=== PATIENT | male | born 1965 ===

== ENCOUNTER 2018-02-03 07:25 | Outpatient (CLI) | payer OTHER ==
[~2018-02-03 07:25] MED LIST: ASPIR 8181 MG; DIOVAN40 MG; JARDIANCE10 MG; TRULICITY0.75 MG/0.
== END 2018-02-03 07:31 | disposition home or self-care (01) ==
LOC: SONOGRAMA 07:25 → MAMO-SONO 08:45
DX: R10.84 Generalized abdominal pain (principal)

== ENCOUNTER 2018-03-30 09:26 | Emergency (ER) | payer OTHER ==
[~2018-03-30] VITALS: Ht 180.3 cm; Wt 96.6 kg
[2018-03-30] MEDS ORDERED: LEXAPRO20 MG (09:45)
[2018-03-30] MEDS ORDERED: AMOX1TAB5 PO (10:06)
[2018-03-30] MEDS ORDERED: IBUPROFEN800 MG PO (10:06)
[2018-03-30] MEDS ORDERED: MUPIROCIN22 GM TOP (10:07)
== END 2018-03-30 10:41 | disposition home or self-care (01) ==
LOC: ER 09:26
DX: S50.871A Other superficial bite of right forearm, initial encounter (principal); W50.3XXA Accidental bite by another person, initial encounter; Y93.89 Activity, other specified; Y92.833 Campsite as the place of occurrence of the external cause; Y99.8 Other external cause status